=== PATIENT | female | born 1975 | race Caucasian/White ===

== ENCOUNTER 2017-01-11 01:37 | Emergency (ER) | payer OTHER ==
[2017-01-11 04:17] LABS: HEMOGLOBIN 14.7 gm/dl (12.3-15.3); RED BLOOD COUNT 4.92 M/UL (4.00-5.10); WHITE BLOOD COUNT 9.5 K/UL (4.5-11.0)
[2017-01-11 04:38] LABS: BUN/CREATININE RATIO 11 (0-10)
== END 2017-01-11 06:00 | disposition home or self-care (01) ==
LOC: ER1 01:37
PROVIDERS: Family Medicine
DX: R11.10 Vomiting, unspecified (principal); R63.0 Anorexia; F17.210 Nicotine dependence, cigarettes, uncomplicated
CPT/HCPCS: 36415; 73552; 80053; 81001; 85025; 96374; 99284; J2405

== ENCOUNTER 2017-03-08 15:35 | Emergency (ER) | payer OTHER | END 2017-03-08 17:57 | disposition home or self-care (01) | LOC: ER1 15:35 | DX: S90.32XA Contusion of left foot, initial encounter (principal); T14.8 Other injury of unspecified body region; F17.210 Nicotine dependence, cigarettes, uncomplicated; W20.8XXA Other cause of strike by thrown, projected or falling object, initial encounter; Y92.009 Unspecified place in unspecified non-institutional (private) residence as the place of occurrence of the external cause; W57.XXXA Bitten or stung by nonvenomous insect and other nonvenomous arthropods, initial encounter | CPT/HCPCS: 73630; 99283 ==

== ENCOUNTER 2021-07-29 13:04 | Emergency (ER) | payer OTHER ==
[~2021-07-29 13:04] MED LIST: DOK100 MG PO; LORTAB 7.5-3251 EACH PO; VIT B12 OTC; ZOFRAN 4 MG TAB4 MG PO
[2021-07-29 15:01] LABS: HEMOGLOBIN 13.5 gm/dl (12.3-15.3); RED BLOOD COUNT 4.6 M/UL (4.00-5.10); WHITE BLOOD COUNT 5.8 K/UL (4.5-11.0)
[2021-07-29 15:34] LABS: BUN/CREATININE RATIO 10 (0-10)
== END 2021-07-29 16:29 | disposition home or self-care (01) ==
LOC: ER1 13:04
PROVIDERS: Emergency Medicine
DX: U07.1 COVID-19 (principal); F17.200 Nicotine dependence, unspecified, uncomplicated
CPT/HCPCS: 71045; 80053; 81001; 83690; 84484; 85025; 86140; 93005; 96372; 99284; J1885; U0002

== ENCOUNTER → 2021-12-16 | Outpatient (CLI) | payer OTHER | LOC: KOH-I 11-13 15:00 | DX: M79.641 Pain in right hand (principal); R91.1 Solitary pulmonary nodule; M54.50 Low back pain, unspecified; M47.817 Spondylosis without myelopathy or radiculopathy, lumbosacral region; R91.8 Other nonspecific abnormal finding of lung field; Z98.1 Arthrodesis status | CPT/HCPCS: 71250; 72110 ==

== ENCOUNTER 2022-06-05 20:26 | Inpatient (IN) | payer OTHER ==
[~2022-06-05] VITALS: Ht 170.2 cm; Wt 86.2 kg
[2022-06-05 21:51] LABS: HEMOGLOBIN 13.4 gm/dl (12.3-15.3); RED BLOOD COUNT 4.5 M/UL (4.00-5.10); WHITE BLOOD COUNT 12.4 K/UL (4.5-11.0)
[2022-06-05 22:15] LABS: BUN/CREATININE RATIO 5 (0-10)
[2022-06-06] MEDS ORDERED: PROAIR HFA8.5 GM INH (10:54)
[2022-06-06] MEDS ORDERED: OMEPRAZOLE40 MG PO (10:55)
[2022-06-06] MEDS ORDERED: SYMBICORT 160-1 INHA INH (10:55)
[2022-06-06] MEDS ORDERED: FLUOXETINE HCL10 M1 PO (10:55)
[2022-06-07 04:54] LABS: HEMOGLOBIN 10.9 gm/dl (12.3-15.3); RED BLOOD COUNT 3.73 M/UL (4.00-5.10); WHITE BLOOD COUNT 6.5 K/UL (4.5-11.0)
[2022-06-07 05:16] LABS: BUN/CREATININE RATIO 5 (0-10)
[2022-06-08 06:41] LABS: HEMOGLOBIN 11.4 gm/dl (12.3-15.3); RED BLOOD COUNT 3.81 M/UL (4.00-5.10); WHITE BLOOD COUNT 7.5 K/UL (4.5-11.0)
[2022-06-08 07:12] LABS: BUN/CREATININE RATIO 6 (0-10)
[2022-06-08] MEDS ORDERED: AMOX TR-K CLV1 EAC4 PO (11:58)
[2022-06-08] MEDS ORDERED: HYDROCODON-ACE1 EAC2 PO (11:58)
== END 2022-06-08 13:32 | disposition home or self-care (01) | DRG 872 ==
LOC: ER1 20:26 → CDU 23:04 → M/S 23:04
PROVIDERS: Emergency Medicine; Orthopaedic Surgery; ADMIT Internal Medicine
PROC: 3E03329 Introduction of Other Anti-infective into Peripheral Vein, Percutaneous Approach (ICD-10-PCS; 2022-06-05)
PROC: 0J9K0ZZ Drainage of Left Hand Subcutaneous Tissue and Fascia, Open Approach (ICD-10-PCS; principal; 2022-06-07 12:57)
DX: A40.0 Sepsis due to streptococcus, group A (principal); F41.9 Anxiety disorder, unspecified; L03.012 Cellulitis of left finger; Z20.822 Contact with and (suspected) exposure to COVID-19; L08.89 Other specified local infections of the skin and subcutaneous tissue; F17.210 Nicotine dependence, cigarettes, uncomplicated; E66.9 Obesity, unspecified; K21.9 Gastro-esophageal reflux disease without esophagitis; Z90.49 Acquired absence of other specified parts of digestive tract; Z90.710 Acquired absence of both cervix and uterus; Z98.890 Other specified postprocedural states; Z82.49 Family history of ischemic heart disease and other diseases of the circulatory system; Z68.29 Body mass index [BMI] 29.0-29.9, adult
CPT/HCPCS: 10060; 36415; 71045; 73130; 80053; 80202; 81001; 82962; 83605; 83690; 85025; 85652; 86140; 87040; 87070; 87077; 87205; 94640; 94664; 94760; 96374; 96375; 99284; J0690; J1100; J1170; J1650; J1885; J2001; J2250; J2270; J2405; J2543; J2704; J3010; J3370; J7030; J7070

== ENCOUNTER → 2022-06-19 | Outpatient (CLI) | payer OTHER ==
[~2022-06-19] MED LIST changes: +AMOX TR-K CLV1 EAC4 PO; +FLUOXETINE HCL10 M1 PO; +HYDROCODON-ACE1 EAC2 PO; +OMEPRAZOLE40 MG PO; +PROAIR HFA8.5 GM INH; +SYMBICORT 160-1 INHA INH
== END ==
LOC: KOH-I 06-11 16:30
DX: R91.8 Other nonspecific abnormal finding of lung field (principal); K44.9 Diaphragmatic hernia without obstruction or gangrene
CPT/HCPCS: 71250